=== PATIENT | male | born 1950 | race Caucasian/White ===

== ENCOUNTER → 2019-07-18 | Outpatient (CLI) | payer OTHER, MEDICARE ==
[~2019-07-18] MED LIST: ALTACE 1.25 M1.25 MG PO; ASPIRIN325 PO; CARVEDILOL12.5 MG PO; CRESTOR20 MG PO; FLONASE 0.05%50 MCG; GLUCOPHAGE1000 MG PO; HUMALOG100 UNIT/1 SQ; HYDROCHLOROTHIA25 M1 PO; IBUPROFEN 800800 M1 PO; LANTUS SUBQ; NORCO 5-325 TA1 EACH PO; OXYCONTIN20 M1; PAXIL CR25 MG PO; PERCOCET 5-3251 EACH PO; PRILOSEC 10MG C10 M1 PO; SKELAXIN 800 M800 M1 PO; TRAMADOL 50 MG50 MG PO; VERAPAMIL HCL360 MG PO; ZYRTEC10 M2 PO; [UNRECOGNIZED DRUG - OTHER] PO
--- NOTE | 2019-07-19 10:35 | CARDNUC ---
[place] [address] CARDIAC NUCLEAR IMAGING REPORT Name: MARY MEHTA JR Room: [facility]#: [id number] Admission: 07/18/19 Attend Phys: Eunice Mora, Discharge: Date of : 52 Date of Service: 07/19/19 1035 Report #: [id number] THIS REPORT FOR: //name// APPROVED REPORT Imaging Protocol: Stress Tc-99m/Rest Tc-99m 2 days Study performed: 07/18/2019 11:30:00 Indication: CAD s/p PCI, Chest pain. Patient Location: Out-Patient Stress Tech: Liliana Vazquez Stress Nurse: Kyung Conner RN NM Tech:JERRY Lazo Ht: 5 ft 10 in Wt: 235 lbs BSA: 2.24 m2 BMI: 33.71 Medical History Medical History: Angina, CAD s/p stent, Carotid artery disease, Diabetic Insulin, Former Smoker, HTN, Hyperlipidemia, Obesity , Stroke/TIA, Spinal cord stimulator, insulin pump, PVD. Medications: ASA 325 Mg, HCTZ, Ramipril, Rosuvastatin, Verapamil, Chlorthalidone, Carvedilol. Allergies: No known drug allergies Cardiac Risk Factors: Age, Diabetes (insulin), FHX of CAD, HTN, Hyperlipidemia, Past Smoker, PVD, Carotid Stenosis, Obesity. Previous Cardiac Procedures: PCI Pretest Chest Pain Characteristics: No chest pain Exercise History: Indeterminate Physical Disabilities: Back pain, Spinal Cord Stimulator. Meds Held (24 hrs): Carvedilol. Resting Data Rest SPECT myocardial perfusion imaging was performed in supine position 30 minutes following the intravenous injection of 35.3 mCi of Tc-99m Sestamibi. Time of rest injection: 09 Date: 07/19/2019 The images were gated to evaluate regional wall motion and calculate left ventricular ejection fraction. Administration Route: Straight Stick Administration Site: Right AC Pharmacologic Stress Pharmacologic stress test was performed by injecting Regadenoson 0.4 mg IV push over 10-15 seconds immediately followed [place] [address] CARDIAC NUCLEAR IMAGING REPORT Name: MARY MEHTA JR Room: [facility]#: [id number] Admission: 07/18/19 Attend Phys: Eunice Mora, Discharge: Date of : 52 Date of Service: 07/19/19 1035 Report #: [id number] injection of 33.0 mCi of Tc-99m Sestamibi. Time of stress injection: 1105 Date: 07/18/2019 Administration Route: IV Administration Site: Right Arm Gated Stress SPECT was performed 40 minutes after stress injection. The images were gated to evaluate regional wall motion and calculate left ventricular ejection fraction. Prone imaging was performed. Stress Test Details Stress Test: Pharmacologic stress testing performed using 0.4 mg of regadenoson per 5 mL given IV over 10 seconds. Reason for pharmacologic stress test: Back pain/Spinal Cord Stimulator.. HR Max Heart Rate (APMHR): 153 bpm Resting HR: 58 bpm Target HR (85% APMHR): 130 bpm Max HR Achieved: 80 bpm % of APMHR: 52 Recovery HR: 71 bpm HR response to stress: Normal HR response to stress BP Resting BP: 138/79 mmHg Max BP: 120/52 mmHg Recovery BP: 153/67 mmHg BP response to stress: Normal blood pressure response to stress. ECG Resting ECG: Sinus Rhythm, normal EKG Stress ECG: Sinus Rhythm, normal EKG ST Change: None Arrhythmia: None Recovery ECG: Sinus Rhythm, normal EKG Recovery ST Change: None Recovery Arrhythmia: None Clinical Reason for Termination: Completed protocol Stress Symptoms: Lightheaded, Dizziness. Exercise duration: 00 min 00 sec Exercise capacity: 1.00 METs Nurse Comments A 68 year old male presented for Sitting Lexiscan [place] [address] CARDIAC NUCLEAR IMAGING REPORT Name: MARY MEHTA JR Room: [facility]#: [id number] Admission: 07/18/19 Attend Phys: Eunice Mora, Discharge: Date of : 52 Date of Service: 07/19/19 1035 Report #: [id number] r/t CP and s/p PCI. Patient tolerated test well. Recovery unremarkable with PO caffeine, effective. Patient was escorted by staff to Nuclear Medicine for images. Patient was stable and stated he felt good at that time. Stress ECG Conclusion Normal hemodynamic response to pharmacologic stress. Clinical: Non-ischemic Non-diagnostic EKG pharmacologic stress due to failure to attain target HR. Study Quality Study: Good Artifact: Mild Soft tissue attenuation artifact Lung Uptake: Normal Study Data At rest, the left ventricular ejection fraction was 67%.. Post stress, the left ventricular ejection was 61%.. SSS: 13 SRS: 0 SDS: 13 TID = 1.05. Perfusion The resting study demonstrated a very small very mild apical defect and a small mild inferior defect near the base as well as a small very mild anterior defect near the base. The post stress images demonstrated a small severe apical defect and a small very mild anterior defect as well as a small mild lateral defect. Prone images demonstrate a moderate-sized moderate moderate in severity apical defect and a small mild inferior defect near the apex as well as a small very mild anterior defect. These images demonstrate a moderate size mild to moderate apical and anterolateral partially reversible defect with some areas being completely reversible. These reversible defects represent myocardial ischemia. Images were reviewed using [employer]. Wall Motion Normal left ventricular wall motion. Nuclear Conclusion ECG Findings: non-diagnostic Clinical Findings: negative for ischemia Nuclear Findings: positive for ischemia Exercise Capacity: not assessed [address] [address] CARDIAC NUCLEAR IMAGING REPORT Name: MARY MEHTA JR Room: [facility]#: [id number] Admission: 07/18/19 Attend Phys: Eunice Mora, Discharge: Date of : 52 Date of Service: 07/19/19 1035 Report #: [id number] Left Ventricular Function: normal Risk Study: moderate The Lexiscan Cardiolite stress test demonstrates an overall moderate to large mild to moderate in severity area of ischemia involving the apex and anterolateral wall. Overall this is a moderate to high risk study. <Conclusion> Normal hemodynamic response to pharmacologic stress. Clinical: Non-ischemic Non-diagnostic EKG pharmacologic stress due to failure to attain target HR. <ELECTRONICALLY SIGNED> By: Eunice Mora MD, FACC 07/19/195 34 103 Eunice Mora MD, FACC /INF
== END ==
LOC: M.CRD 07-13 12:11 → EDSTATUS 10:00 → M.CRD 07-21 15:00
DX: Z79.4 Long term (current) use of insulin (principal); I10 Essential (primary) hypertension; E78.5 Hyperlipidemia, unspecified; E11.51 Type 2 diabetes mellitus with diabetic peripheral angiopathy without gangrene; Z95.5 Presence of coronary angioplasty implant and graft; Z87.891 Personal history of nicotine dependence; I65.23 Occlusion and stenosis of bilateral carotid arteries

== ENCOUNTER → 2019-08-08 | Outpatient (CLI) | payer OTHER, MEDICARE ==
[2019-08-08] VITALS (7 sets, daily range): BP systolic 107–175; BP diastolic 44–88
[~2019-08-08] VITALS: Ht 177.8 cm; Wt 106.6 kg
[2019-08-08 12:41] LABS: HEMATOCRIT 37.5 % (42.0-52.0); HEMOGLOBIN 12.8 gm/dL (14.0-18.0); MCH 28.4 pg (26.0-34.0); MCHC 34.1 g/dL (28.0-37.0); MCV 83.3 fL (80.0-100.0); MPV 7.6 fl. (7.2-11.1); RBC 4.5 mil/uL (4.50-6.00); RDW-CV 14.2 % (10.5-14.5); WBC 7.5 thou/uL (4.0-11.0)
[2019-08-08 12:49] LABS: ANION GAP 8 mmol/L (7-16); BUN 23 mg/dL (7-18); CALCIUM 8.8 mg/dL (8.5-10.1); CHLORIDE 102 mmol/L (98-107); CO2 30 mmol/L (21-32); CREATININE 1.5 mg/dL (0.6-1.3); GLUCOSE 135 mg/dL (70-99); POTASSIUM 3.6 mmol/L (3.5-5.1); SODIUM 140 mmol/L (136-145)
[2019-08-08 12:53] LABS: ALBUMIN 3.9 g/dL (3.4-5.0); ALKALINE PHOSPHATASE 105 U/L (46-116); CHOLESTEROL 124 mg/dL (<200); HDL CHOLESTEROL 31 mg/dL (>40); LDL CHOLESTEROL 61 mg/dL (<100); SERUM ASSESSMENT Clear; SGOT 31 U/L (15-37); SGPT 29 U/L (30-65); TOTAL BILIRUBIN 0.3 mg/dL (<0.1-1.0); TOTAL PROTEIN 7.1 g/dL (6.4-8.2); TRIGLYCERIDE 164 mg/dL (<150); VLDL 33 mg/dL (<40)
[2019-08-08 12:56] LABS: APTT 28.3 Seconds (25.0-31.3); PROTIME 10.2 Seconds (9.20-11.50)
--- NOTE | 2019-08-08 17:14 | EKG ---
[place] [address] ELECTROCARDIOGRAM REPORT Name: MARY MEHTA JR Room: [facility]#: [id number] Admission: 08/08/19 Attend Phys: Eunice Mora MD, Discharge: Date of : 52 Report #: [id number] THIS REPORT FOR: //name// [facility] Test Date: 2019-08-08 Test Time: 11:55:11 Pat Name: MARY MEHTA Department: Room: Gender: M Communications Technologist: : 1950 Requested By: Nigel Solis Order Number: [id number] Christoph MD: Nickolas Jurado Measurements Intervals [place] Rate: 61 P: 49 NC: 206 QRS: 53 QRSD: 96 T: 85 QT: 405 QTc: 408 Interpretive Statements Sinus rhythm Minimal ST elevation, inferior leads Compared to ECG 10/05/2007 07:39:14 ST (T wave) deviation now present Electronically Signed On 08-08-2019 17:14:03 OPHTHALMOLOGIST RETINA SPECIALIST by Nickolas Jurado [email or web address] <ELECTRONICALLY SIGNED> By: Nickolas Jurado MD, [facility] 08/08/19 1714 1155 1155 Nickolas Jurado MD, FACC /EPI
--- NOTE | 2019-08-11 13:32 | CARD ---
[address] [address] CARDIAC CATH REPORT Name: MARY MEHTA JR Room: [facility]#: [id number] Admission: 08/08/19 Attend Phys: Eunice Mora MD, Discharge: Date of : 52 Report #: [id number] THIS REPORT FOR: //name// APPROVED REPORT Study performed: 08/08/2019 13:56:19 Patient Details Patient Status: Out-Patient Room #: The patient is a 68 year-old male Event Personnel Nigel Solis Architectural Inspector, Tamera Arias Pizzamaker, Lamonte Mendoza RTR Scrub, Lydia Mckinney RTR Monitor Procedures Performed Art Access - R femoral artery Left Heart Cath w/or w/o Coronaries LHC Hemostasis w/ Mynx Hemostasis w/ Manual Pressure Indication Positive stress test Risk Factors Obesity, Hypercholesterolemia, Diabetes Procedure Narrative The patient was brought electively to the Cardiac Catheterization Laboratory and was prepped and draped in a sterile manner. The right femoral was infiltrated with 2% Lidocaine subcutaneous anesthesia. A Gravelly 6 FR sheath was inserted into the right femoral artery. Coronary angiography was performed using coronary diagnostic catheters. The right coronary system was accessed and visualized with a Diagnostic JR 4 6 Fr catheter. The left coronary system was accessed and visualized with a Diagnostic JL 3.5 6 Fr catheter. The left ventricle was accessed and visualized with a Diagnostic Pigtail 6 Fr catheter. Left ventricular/Aortic Valve gradient assessed via catheter pullback. Left ventriculogram was performed in YUN projection. Pre-demployment femoral angiogram was performed . Closure device was deployed with a Fr MynxGrip 6/7F. Hemostasis was obtained with manual pressure following sheath removal without any complications. The patient tolerated the procedure well and there were no complications associated with the procedure. There was no hematoma. Mynx failed to deploy. Therefore [place] [address] CARDIAC CATH REPORT Name: MARY MEHTA JR Room: [facility]#: [id number] Admission: 08/08/19 Attend Phys: Eunice Mora MD, Discharge: Date of : 52 Report #: [id number] Intraoperative Conscious Sedation Sedation start time: 14:29 Case end Time: 15:06 Fentanyl 25 mcg Versed 2 mg Fluoro Time: 4.3 minutes Dose: DAP 59973 cGycm2 1095 mGy Contrast Type and Amount: Visipaque 205 ml Diagnostic Cath Left Main 10% mid vessel narrowing LAD 90% calcified proximal stenosis with 60% tubular mid vessel narrowing Circumflex Tandem 90% stenosis of the prominent first marginal branch of the nondominant circumflex Right Coronary Dominant vessel with 40% proximal narrowing and 80% irregular tubular narrowing throughout the midportion of the vessel to the acute margin Left Ventriculography The left ventricle is normal in size with contractility. The left ventricular ejection fraction is estimated to be 50%. Left ventricular wall motion abnormalities are present. There is no mitral insufficiency. Anterolateral hypokinesis is noted Hemodynamics The aortic pressure is 163/63 mmHg with a mean of 104 mmHg. The left ventricular pressure is 154/2 mmHg with a mean of mmHg. The left ventricular end diastolic pressure is 13 mmHg. There was no gradient across the aortic valve upon pullback. Conclusion #1 significant coronary artery disease characterized by the following: A 10% left main coronary artery narrowing B 90% calcified proximal LAD stenosis with 60% tubular mid LAD narrowing C nondominant circumflex with tandem 90% stenoses of the first marginal branch D dominant right coronary artery with 40% proximal and 80% tubular irregular [place] [address] CARDIAC CATH REPORT Name: MARY MEHTA JR Room: [facility]#: [id number] Admission: 08/08/19 Attend Phys: Eunice Mora MD, Discharge: Date of : 52 Report #: [id number] #2 mild impairment in global LV function, estimated ejection fraction being 50% with anterolateral hypokinesis #3 modest systemic systolic hypertension Recommendations Cardiac Risk Reduction Program CABG Diagnostic Cath Approved by: Nigel Solis MD Date/Time: 08/11/2019 13:30:31 <ELECTRONICALLY SIGNED> By: Nigel Solis MD, [facility] 08/11/19 1331 1331 1331Nigel Solis MD, FACC /INF
== END | disposition home or self-care (01) ==
LOC: M.CL 07-29 12:00
PROVIDERS: Internal Medicine
DX: R94.39 Abnormal result of other cardiovascular function study (principal); I25.10 Atherosclerotic heart disease of native coronary artery without angina pectoris; E11.9 Type 2 diabetes mellitus without complications; E78.00 Pure hypercholesterolemia, unspecified; E66.09 Other obesity due to excess calories; Z98.890 Other specified postprocedural states; Z79.82 Long term (current) use of aspirin; Z79.899 Other long term (current) drug therapy; Z79.4 Long term (current) use of insulin; Z79.891 Long term (current) use of opiate analgesic

== ENCOUNTER → 2020-01-17 | Outpatient (CLI) | payer OTHER ==
[2020-01-17 09:29] LABS: ABSOLUTE BASOPHILS 0.2 thou/uL (0.0-0.2); ABSOLUTE EOSINOPHILS 0.8 thou/uL (0.0-0.7); ABSOLUTE LYMPHOCYTES 1.4 thou/uL (0.8-5.3); ABSOLUTE MONOCYTES 0.7 thou/uL (0.0-1.2); ABSOLUTE NEUTROPHILS 4.6 thou/uL (1.6-8.1); BASOPHILS 2.5 %; EOSINOPHILS 10.5 %; HEMATOCRIT 29.2 % (42.0-52.0); HEMOGLOBIN 9.7 gm/dL (14.0-18.0); LYMPHOCYTES 17.7 %; MCH 26.9 pg (26.0-34.0); MCHC 33.1 g/dL (28.0-37.0); MCV 81.3 fL (80.0-100.0); MONOCYTES 8.6 %; MPV 6.5 fl. (7.2-11.1); NUCLEATED RBCS 0 /100WBC; PLATELET COUNT* 327 thou/uL (150-400); POLYS 60.7 %; WBC 7.7 thou/uL (4.0-11.0)
[2020-01-17 10:04] LABS: ALBUMIN 3.2 g/dL (3.4-5.0); CALCIUM 8.7 mg/dL (8.5-10.1); CREATININE 1.4 mg/dL (0.6-1.3); POTASSIUM 3.8 mmol/L (3.5-5.1); TOTAL BILIRUBIN 0.3 mg/dL (<0.1-1.0); TOTAL PROTEIN 6.6 g/dL (6.4-8.2)
== END ==
LOC: M.LAB 08:52
PROVIDERS: ATTEND Internal Medicine
DX: J98.11 Atelectasis (principal); R91.8 Other nonspecific abnormal finding of lung field; R06.09 Other forms of dyspnea; I10 Essential (primary) hypertension; E11.9 Type 2 diabetes mellitus without complications; Z98.890 Other specified postprocedural states; Z95.1 Presence of aortocoronary bypass graft; Z79.4 Long term (current) use of insulin

== ENCOUNTER 2021-09-18 07:48 | Observation (INO) | payer OTHER ==
[~2021-09-18] VITALS: Ht 177.8 cm; Wt 111.6 kg
[2021-09-18] VITALS (15 sets, daily range): BP systolic 128–167; BP diastolic 62–88
[~2021-09-18 07:48] MED LIST changes: +ACETAMINOPHEN500 MG PO; +ASPIRIN EC81 M1 PO; +BASAGLAR K100 UNIT/1 SUBQ; +CHLORTHALIDONE25 MG PO; +CRESTOR40 MG PO; -GLUCOPHAGE1000 MG PO; -HUMALOG100 UNIT/1 SQ; +HUMALOG100 UNIT/1 SUBQ; +JARDIANCE25 MG PO; +LISINOPRIL5 MG PO; +MAGNESIUM 300300 MG PO; +METFORMIN HCL500 MG PO; +MIRAPEX1.5 MG PO; +OMEGA-3 FISH1200 MG PO; +OMEPRAZOLE10 MG PO; +OSTEO BI-FLEX1 EAC1 PO; -PRILOSEC 10MG C10 M1 PO; +ROXICODONE5 M2 PO; +TERAZOSIN HCL5 MG PO; +THERA-M TABLET1 EACH PO; +TRILIPIX45 MG PO
[2021-09-18 08:33] LABS: HEMATOCRIT 39.7 % (42.0-52.0); HEMOGLOBIN 12.9 gm/dL (14.0-18.0); MCH 26.7 pg (26.0-34.0); MCHC 32.5 g/dL (28.0-37.0); MPV 7.2 fl. (7.2-11.1); RBC 4.84 mil/uL (4.50-6.00); RDW-CV 14.7 % (10.5-14.5); WBC 7.5 thou/uL (4.0-11.0)
[2021-09-18 08:55] LABS: APTT 27.5 Seconds (25.0-31.3); PROTIME 10.1 Seconds (9.20-11.50)
--- NOTE | 2021-09-18 09:15 | EKG ---
[place] [address] ELECTROCARDIOGRAM REPORT Name: MARY MEHTA JR Room: [facility]#: [id number] Admission: 09/18/21 Attend Phys: Álvaro Montes MD Discharge: Date of : 52 Date of Service: 09/18/21 0835 Report #: [id number] THIS REPORT FOR: //name// [facility] Test Date: 2021-09-18 Test Time: 08:35:37 Pat Name: MARY MEHTA Department: Room: Gender: Lamp Decorator: CINDY : 1950 Requested By: Álvaro Montes Order Number: [id number] Christoph MD: Álvaro Montes Measurements Intervals [place] Rate: 63 P: 72 WA: 201 QRS: 72 QRSD: 102 T: 47 QT: 408 QTc: 418 Interpretive Statements Sinus rhythm ST elevation, consider early repolarization Compared to ECG 08/08/2019 11:55:11 ST (T wave) deviation still present Electronically Signed On 09-18-2021 9:06:09 COURSEWARE DEVELOPER by Álvaro Montes [email or web address] <ELECTRONICALLY SIGNED> By: Álvaro Montes MD, [facility] 09/18/21 0906 0835 0835 Álvaro Montes MD, [facility] /EPI
[2021-09-18 09:19] LABS: ANION GAP 7 mmol/L (7-16); BUN 45 mg/dL (7-18); CALCIUM 9.7 mg/dL (8.5-10.1); CHLORIDE 103 mmol/L (98-107); CO2 27 mmol/L (21-32); CREATININE 2.2 mg/dL (0.6-1.3); GLUCOSE 157 mg/dL (70-99); POTASSIUM 4.1 mmol/L (3.5-5.1); SODIUM 137 mmol/L (136-145)
[2021-09-18 09:23] LABS: ALKALINE PHOSPHATASE 97 U/L (46-116); CHOLESTEROL 150 mg/dL (<200); HDL CHOLESTEROL 37 mg/dL (>40); LDL CHOLESTEROL 86 mg/dL (<100); SGOT 27 U/L (15-37); SGPT 46 U/L (30-65); TC:HDL 4.1 Ratio (Not establshd); TOTAL BILIRUBIN 0.3 mg/dL (<0.1-1.0); TOTAL PROTEIN 7.3 g/dL (6.4-8.2); TRIGLYCERIDE 139 mg/dL (<150); VLDL 28 mg/dL (<40)
[2021-09-18 10:58] LABS: SERUM ASSESSMENT CLEAR
[2021-09-18] MEDS ORDERED: PAXIL10 MG/5 ML PO (13:50)
--- NOTE | 2021-09-18 14:04 | EKG ---
[place] [address] ELECTROCARDIOGRAM REPORT Name: TYSONMARY Isbell Room: [address]R.#: [id number] Admission: 09/18/21 Attend Phys: Álvaro Montes MD Discharge: Date of : 52 Date of Service: 09/18/21 1219 Report #: [id number] THIS REPORT FOR: //name// [facility] Test Date: 2021-09-18 Test Time: 12:19:41 Pat Name: MARY MEHTA Department: Room: [facility] Gender: M Breaker Unit Assembler: NARINDER : 1950 Requested By: Álvaro Montes Order Number: [id number] Christoph MD: Álvaro Montes Measurements Intervals [place] Rate: 63 P: 70 NV: 216 QRS: 84 QRSD: 109 T: 63 QT: 413 QTc: 423 Interpretive Statements Sinus rhythm artifact noted Borderline prolonged NV interval Consider left atrial enlargement Borderline right axis deviation Compared to ECG 09/18/2021 08:35:37 no change Electronically Signed On 09-18-2021 14:04:27 RN NEW GRADUATE by Álvaro Montes [email or web address] <ELECTRONICALLY SIGNED> By: Álvaro Montes MD, FAC 09/18/21 1404 1219 1219 Álvaro Montes MD, [facility] /EPI
--- NOTE | 2021-09-18 17:11 | CARD ---
[address] [address] CARDIAC CATH REPORT Name: MARY MEHTA Room: [address] Jerrica#: [id number] Admission: 09/18/21 Attend Phys: Álvaro Montes MD, F Discharge: Date of : 52 Report #: [id number] THIS REPORT FOR: cc: José Manuel Gallego MD, Stephen R. MD Blick,Álvaro Henley MD [facility] ~ APPROVED REPORT Study performed: 09/18/2021 08:45:32 Patient Details Patient Status: Out-Patient Room #: Event Personnel Emeli Blair RTR, Lamonte Mendoza RTR Zena Mares RN Procedures Performed Left Heart Cath with Cors, Cath PCI SVG-Diag Indication Dyspnea, Positive stress test Risk Factors Arterial Hypertension, Hypercholesterolemia, Diabetes Previous Procedures/Diagnoses Previous CABGPrevious PCI Admission/Lab Medications/Medications given during procedure Glycoprotein IllbIlla Inhibitors, Heparin Unfract. Procedure Narrative The patient was brought electively to the Cardiac Catheterization Laboratory and was prepped and draped in a sterile manner. The right femoral was infiltrated with 2% Lidocaine subcutaneous anesthesia. IV conscious sedation was used throughout procedure with appropriate monitoring and was performed in the presence of a registered nurse who was an independent trained observer other than the physician performing the procedure. A 6 Fr [place] sheath was inserted into the right femoral artery. Coronary angiography was performed using coronary diagnostic catheters. The right coronary system was accessed and visualized with a Diagnostic JR4 6Fr catheter[place] [address] CARDIAC CATH REPORT Name: MARY MEHTA JR Room: [address]#: [id number] Admission: 09/18/21 Attend Phys: Álvaro Montes MD, F Discharge: Date of : 52 Report #: [id number] system was accessed and visualized with a Diagnostic JL4 6Fr catheter. The left ventricle was accessed and visualized with a Diagnostic JR4 6Fr catheter. Left ventricular/Aortic Valve gradient assessed via catheter pullback. Pre-demployment femoral angiogram was performed . Closure device was deployed with a 6 Fr Angioseal. The patient tolerated the procedure well and there were no complications associated with the procedure. There was no hematoma. KILLIAN graft was visualized with a 6 kazakh KILLIAN catheter. SVG to the RCA was visualized with a 6 kazakh right SVG catheter. SVG to the circumflex artery with visualized with a 6 kazakh JR4 catheter. Intraoperative Conscious Sedation Sedation start time: 957 Case end Time: 1048 Fentanyl 50.0 mcg Versed 2.0 mg Fluoro Time: 10.6 minutes Dose: DAP 46369 cGycm2 1156.39 mGy Contrast Type and Amount: 130 [place] Coronary Angiography The patient's coronary anatomy is co- dominant. [place] Artery Percent Stenosis Grafts (Complete if Previous CABG=Yes: Percent Stenosis) Patent KILLIAN graft to the LAD. Patent SVG to the PDA branch of the distal RCA. Patent SVG that had anastomsis to a diagonal branch of the LAD, a jump graft to the ramus artery, a jump graft to eh first marginal branch of the circumflex, and a jump graft to the distal 3rd marginal branch. There was a 90% ostial stenosis of this SVG. Diagnostic Cath Left Main 30% distal stenosis. LAD chronically occluded 100% proximally Circumflex 60% proximal stenosis OM1 100% occluded OM2 medium sized vessel with proximal 70% stenosis OM3 100% occluded Right Coronary previous stents noted proximally and in the mid RCA that were chronically occluded. Left Ventriculography Left [place]entriculography [place] [address] CARDIAC CATH REPORT Name: MARY MEHTA JR Room: [address]#: [id number] Admission: 09/18/21 Attend Phys: Álvaro Montes MD, F Discharge: Date of : 52 Report #: [id number] Hemodynamics The aortic pressure is 129/74 mmHg with a mean of 97 mmHg. The left ventricular pressure is 155/8 mmHg with a mean of 24 mmHg. The left ventricular end diastolic pressure is 16 mmHg. There was no gradient across the aortic valve upon pullback. Pullback from the left ventricle to the aorta revealed no gradient across the aortic valve. PCI Technique Lesion Anticoagulation was achieved with Heparin. bolus of IV aggrastat given Percutaneous coronary intervention was performed on the SVG Graft to the circumflex artery.. The lesion stenosis prior to intervention was 90% with SONA 3 flow. A JR4 6Fr Guide Catheter was used to engage the SVG ostium. A BMW 180cm Interventional Guidewire was used to cross the lesion. STENT DEPLOYMENT A drug-eluting stent [place] RX 3.0x15mm was inserted and inflated up to 14.00atm for 20seconds. Repeat angiography revealed the following post-stent deployment results: 0% stenosis. Additional Inflation: 20.00atm for 23seconds. Additional Inflation: 22.00atm for 12seconds. Final angiography reveals 0 % stenosis with SONA 3 flow. Conclusion 1. Chronic occlusion of the proximal LAD that filled by a patent KILLIAN graft. 2. SVG to the diagonal artery, with a sequential jump graft to the ramus artery, first and third marginal branches of the circumflex artery, and had a 90% ostial SVG stenosis. 3. Patent SVG to the PDA branch of the distal RCA. 4. Chronic occlusion of stents in the RCA. 5. Successful placement oif a drug eluting stent in the ostium of the SVG to the circumflex artery. Recommendations Cardiac Rehabilitation Referral [facility] [place] [address] CARDIAC CATH REPORT Name: MARY MEHTA JR Room: [address] Ashish Becerril#: [id number] Admission: 09/18/21 Attend Phys: Álvaro Montes MD, F Discharge: Date of : 52 Report #: [id number] Medications Administered Clopidogrel <ELECTRONICALLY SIGNED> By: Álvaro Montes MD, FAC 09/18/211709 09 09Davimyrna Montes MD, FAC /INF
[2021-09-19 00:40] VITALS: BP 106/51
[2021-09-19 04:20] LABS: HEMATOCRIT 36.9 % (42.0-52.0); HEMOGLOBIN 12.1 gm/dL (14.0-18.0); MCHC 32.8 g/dL (28.0-37.0); MCV 82.4 fL (80.0-100.0); RBC 4.48 mil/uL (4.50-6.00); RDW-CV 14.7 % (10.5-14.5); WBC 7.8 thou/uL (4.0-11.0)
[2021-09-19 04:41] LABS: CALCIUM 9.3 mg/dL (8.5-10.1); CREATININE 2.3 mg/dL (0.6-1.3); POTASSIUM 3.7 mmol/L (3.5-5.1)
[2021-09-19 04:55] VITALS: BP 137/64
[2021-09-19 09:00] VITALS: BP 130/60
[2021-09-19] MEDS ORDERED: METFORMIN HCL500 MG PO (11:33)
[2021-09-19] MEDS ORDERED: CLOPIDOGREL75 MG PO (11:34)
[2021-09-19] MEDS ORDERED: NITROGLYCERIN0.4 MG SUBLING (11:34)
[2021-09-19 11:36] VITALS: BP 133/63
[2021-09-19 11:49] VITALS: BP 133/63
[2021-09-19 12:12] VITALS: BP 133/63
--- NOTE | 2021-09-19 12:48 | EKG ---
[place] [address] ELECTROCARDIOGRAM REPORT Name: TYSONMARY Akilah Room: [address]R.#: [id number] Admission: 09/18/21 Attend Phys: Álvaro Montes MD Discharge: Date of : 52 Date of Service: 09/19/21 0929 Report #: [id number] THIS REPORT FOR: //name// [facility] Test Date: 2021-09-19 Test Time: 09:29:27 Pat Name: MARY MEHTA Department: Room: [address] Gender: M Manager Lsw: SB : 1950 Requested By: Álvaro Montes Order Number: [id number] Reading MD: Nigel Solis Measurements Intervals [place] Rate: 68 P: 63 MT: 205 QRS: 68 QRSD: 102 T: 50 QT: 412 QTc: 439 Interpretive Statements Sinus rhythm Minimal ST elevation, diffuse leads Baseline wander in lead(s) V6 Compared to ECG 09/18/2021 12:19:[address]-T changes have occurred Electronically Signed On 09-19-2021 12:48:23 SUPERVISOR CIGARETTE MAKING DEPARTMENT by Nigel Solis [email or web address] <ELECTRONICALLY SIGNED> By: Nigel Solis MD, [facility] 09/19/21 1248 0929 Nigel Solis MD, [facility] /EPI
--- NOTE | 2021-09-19 14:05 | D ---
[address] [address] DISCHARGE SUMMARY Name: MARY MEHTA JR Room: [address] Jerrica#: [id number] Admission: 09/18/21 Attend Phys: Álvaro Montes MD, F Discharge: 09/19/21 Date of : 52 Report #: [id number] THIS REPORT FOR: cc: José Manuel Gallego MD, Stephen R. MD Biggs, F. Douglas MD [facility] ~ I am dictating this for Dr. Álvaro Montes who admitted him. HISTORY OF PRESENT ILLNESS: The patient was admitted for cardiac catheterization and coronary angiography. He has a history of coronary artery disease. He has had bypass graft surgery. He had developed an anginal equivalent consisting of severe dyspnea on exertion and fatigue. He had a positive nuclear stress test, which showed ischemia in the lateral wall done prior to the cardiac catheterization that was done as an outpatient. He underwent cardiac catheterization and coronary angiography yesterday that is 09/18/2021. The procedure was done by Dr. Álvaro Montes. Dr. Montes found a high-grade or 90% stenosis of a saphenous vein graft to the circumflex vessel. His other grafts were open. Dr. Montes then stented that saphenous vein graft. The patient tolerated the procedure well. There were no complications. Today, the patient feels well and has no complaints. He has not had any chest pain or dyspnea on exertion or shortness of breath. He is not feeling his fatigue as he did. He will go home this morning. HOME MEDICATIONS: Will be aspirin 81 mg daily, carvedilol 12.5 mg b.i.d., Zyrtec 10 mg daily, chlorthalidone 25 mg daily, Jardiance 25 mg daily, Trilipix or fenofibric acid 45 mg daily, insulin glargine in a variable dose at bedtime, insulin lispro 40 units at bedtime, lisinopril 5 mg daily, mag ox 300 mg daily, multivitamin with minerals daily, p.r.n. Osteo Bi-Flex, p.r.n. Tylenol. He will not go home on metformin, which he normally takes. He will not resume that for 4 days post-cardiac catheterization. He will get oxycodone 5 mg p.r.n. for pain q.4 hours, omeprazole 10 mg b.i.d., Mirapex 1.5 mg t.i.d., Crestor 40 mg daily, and terazosin 5 mg daily. ACTIVITY: No heavy lifting or heavy exertion. DIET: Low salt, low cholesterol, cardiac diet. Additionally, he is on a diabetic diet. FOLLOWUP: He will follow up with my nurse practitioner in the office in 2 weeks. He will then follow up with me in 2 months. DISCHARGE DIAGNOSES: 1. Coronary artery disease. 2. Status post coronary artery bypass graft surgery. 3. [place] [address] DISCHARGE SUMMARY Name: TYSONMARY JR Room: [address] Ashish Becerril#: [id number] Admission: 09/18/21 Attend Phys: Álvaro Montes MD, F Discharge: 09/19/21 Date of : 52 Report #: [id number] 4. Positive nuclear stress test. 5. Cardiac catheterization and coronary angiography with angioplasty and stenting of the saphenous vein graft to the circumflex vessel. 6. Essential hypertension. 7. Diabetes mellitus. 8. Hypercholesterolemia. <ELECTRONICALLY SIGNED> By: Eunice Mora MD, FACC 09/19/21 1405 0933 1008F. Toy Mora MD, FACC /nt
== END 2021-09-19 12:45 | disposition home or self-care (01) ==
LOC: M.CL 07:48 → M.2W 10:33 → M.TBA-ER 10:33 → M.TBA-CV 11:07 → M.2W 13:10
PROVIDERS: ADMIT Internal Medicine Cardiovascular Disease; ATTEND Internal Medicine Cardiovascular Disease
DX: I25.119 Atherosclerotic heart disease of native coronary artery with unspecified angina pectoris (principal); Z20.822 Contact with and (suspected) exposure to COVID-19; E78.00 Pure hypercholesterolemia, unspecified; I48.91 Unspecified atrial fibrillation; E11.9 Type 2 diabetes mellitus without complications; F43.9 Reaction to severe stress, unspecified; Z95.1 Presence of aortocoronary bypass graft